=== PATIENT | female | born 1995 | race Two or more races ===

== ENCOUNTER 2023-10-02 18:42 | Emergency (ER) | payer MEDICAID ==
[2023-10-02] MEDS: methylPREDNISolone Sodium Succinate 125 MG/2 ML SDV IM ONE (21:10)
[2023-10-02] MEDS: Lidocaine 4% 1 each Patch TOP PRN (21:10)
[2023-10-02] MEDS: Ketorolac 30 MG/ML SDV IM ONE (21:10)
== END 2023-10-02 21:13 | disposition home or self-care (01) ==
LOC: MW.ED 18:42
DX: M54.50 Low back pain, unspecified (principal); E66.9 Obesity, unspecified; Z88.8 Allergy status to other drugs, medicaments and biological substances; Z79.899 Other long term (current) drug therapy; Z79.82 Long term (current) use of aspirin; Z75.8 Other problems related to medical facilities and other health care; Z68.30 Body mass index [BMI] 30.0-30.9, adult
CPT/HCPCS: 96372; 99283; A9270; J1885; J2930